=== PATIENT | male | born 1960 | race Hispanic/Latino ===

== ENCOUNTER 2024-05-30 17:54 | Emergency (ER) | payer MEDICARE ==
[~2024-05-30] VITALS: Ht 177.8 cm; Wt 86.2 kg
--- NOTE | 2024-05-30 18:03 | ERN ---
ED Note History of Present Illness Stated Complaint: LEG SWELLING Chief Complaint: LOWER EXTREMITY EDEMA Time Seen by MD: 18:04 Dictation: 64-YEAR-OLD MALE COMING IN WITH THE EMS WITH COMPLAINTS OF ABDOMINAL DISTENTION WITH THE EDEMA TO HIS LOWER EXTREMITIES SHE HAS HAD FOR A LONG TIME. NO FEVER NO CHILLS NO CHEST PAIN. HAS A HISTORY OF CIRRHOSIS WITH A ASCITES JUST GOT OUT OF [facility]. Allergies: Coded Allergies: No Known Allergies (Unverified Allergy, Unknown, 05/30/24) Past Medical History Past Medical History: CHF, Diabetes-Type II, High Cholesterol, Hypertension, Liver Disease Surgical History: Other PSYCH History: no pertinent psych hx RN Note Reviewed/Agreed w/PFSH: Yes Review of System Dictation CONSTITUTIONAL: NEGATIVE EXCEPT FOR HPI HEAD/FACE: NEGATIVE EXCEPT FOR HPI EENT: NEGATIVE EXCEPT FOR HPI RESPIRATORY: NEGATIVE EXCEPT FOR HPI SHORTNESS A BREATH/BILATERAL LOWER EXTREMITY EDEMA GASTROINTESTINAL/ABDOMINAL: NEGATIVE EXCEPT FOR HPI ABDOMINAL DISTENTION GENITOURINARY: NEGATIVE EXCEPT FOR HPI MUSCULOSKELETAL: NEGATIVE EXCEPT FOR HPI INTEGUMENTARY: NEGATIVE EXCEPT FOR HPI NEUROLOGICAL/PSYCH: NEGATIVE EXCEPT FOR HPI HEMATOLOGIC/LYMPHATIC: NEGATIVE EXCEPT FOR HPI ALL SYSTEMS NEGATIVE, EXCEPT NOTED ABOVE. 13 POINT REVIEW OF SYSTEMS ASSESSED AND ALL NEGATIVE EXCEPT FOR ABOVE. Physical Exam Dictation VITAL SIGNS REVIEWED GENERAL APPEARANCE: ALERT, ORIENTED X 3, NO ACUTE DISTRESS, WELL DEVELOPED, NOURISHED. HEAD AND FACE: NON-TRAUMATIC. EYES: PERRL, PINK CONJUNCTIVAS, EYELID NO TRAUMA, ANTERIOR CHAMBER WITH ARCUS SENILIS. EARS: PINNAS INTACT AND NO SIGNS OF TRAUMA OR ERYTHEMA EAR CANALS CLEAR AND NO DISCHARGE TM NO ERYTHEMA NOSE: NO DISCHARGE, NO BLEEDING. OROPHARYNX: MOUTH NORMAL, TONGUE PINK, PHARYNX CLEAR,NO ERYTHEMA, TONSILS NO EXUDATES, NO ABSCESSES NOTED, MUCOUS MEMBRANE MOIST NECK: SUPPLE, NON-TENDER, NO THYROMEGALY, NO MASSES, NO JVD, NO BRUITS BREAST:DEFERRED CHEST:NO TENDERNESS, NO CREPITUS, NO PARADOXICAL MOVEMENT, NO RETRACTIONS LUNGS:CLEAR, WELL-VENTILATED, SYMMETRIC, NO RALES, NO WHEEZING, NO RHONCHI, NO STRIDOR, GOOD BREATH SOUNDS BILATERALLY HEART: REGULAR RATE, REGULAR RHYTHM, NO MURMUR, NO GALLOPS VASCULAR: 3+ PERIPHERAL EDEMA BILATERAL LOWER EXTREMITIES TO KNEES, ABDOMEN: SOFT, POSITIVE BOWEL SOUNDS, NONDISTENDED, NO GUARDING, NONTENDER, NO REBOUND, NO MASSES NO HEPATOMEGALY, NO SPLENOMEGALY, NO BENZ'S SIGN, NO HERNIAS. ABDOMINAL DISTENTION WITH A ASCITES RECTAL: DEFERRED GENITAL: DEFERRED NEUROLOGICAL: NORMAL SPEECH, MOTOR FUNCTION INTACT, SENSORY FUNCTION INTACT MUSCULOSKELETAL: NECK NONTENDER, FULL RANGE OF MOTION, BACK NONTENDER, FULL RANGE OF MOTION, EXTREMITIES: NONTENDER, FULL RANGE OF MOTION SKIN: COLOR PINK, DRY, NO TURGOR, NO RASH, NO LACERATIONS, NO ABRASIONS, NO CONTUSIONS. LYMPHATIC: DEFERRED Results (Laboratory/Radiology) Labs Reviewed?: Yes ED Course ED Course Orders Procedure Category Date Status Time Pt And Ptt LAB 05/30/24 Logged 17:59 Ammonia LAB 05/30/24 Logged 17:59 Cbc With Differential LAB 05/30/24 Logged 17:59 Comprehensive LAB 05/30/24 Logged Metabolic Panel 17:59 Urinalysis Profile LAB 05/30/24 Logged 17:59 Chest 1vw RAD 05/30/24 Logged 17:59 B-Type Natriuretic LAB 05/30/24 Logged Peptide 18:04 12 Lead Ekg Tracing- EKG 05/30/24 Logged Technical 18:04 Medical Decision Making MDM MEDICAL DECISION-MAKING BASED ON PATIENT GETTING OFF OF STRETCHER FROM EMS AND STATES HE DOES NOT WANT TO BE AT THIS HOSPITAL HE SAID HIS HOSPITALIST IN [facility] AND HE IS ALREADY CALL AN UBER TO TAKE HIM TO [facility]. DX & DISP Disposition: AMA Departure Impression: Primary Impression: Shortness of breath Additional Impressions: Ascites, Cirrhosis Condition: Stable Time of Disposition: 18:07 I have reviewed the case, and I agree with, Diagnosis and Plan PAOLA PIRES NP May 30, 2024 18:03
--- NOTE | 2024-05-30 18:19 | NUR ---
1809 PT ARRVIED TO ROOM VIA EMS, PT STATES HE DOES NOT WANT TO SEE THE ATTENDING DOCTOR, HE WAS TOLD TO COME HERE, EMS WOULD NOT TAKE HIM TO [facility] IN [place]. PT STATES [facility] IS HIS [facility] WANT TO GO THERE. PT ASKED FOR PHONE TO CALL HIS , STATES WILL CALL HIM AN UBER. PT HAS NO IV ON ARRIVAL. NOTIFIED PAOLA THOMPSON, STATED PT WILL THEN NEED TO AMA. PT AGREED. PT SIGNED AMA FORM, 1819 PT TAKEN OUT TO ER [facility] IN [place] IS WAITING FOR HIS UBER RIDE.
== END 2024-05-30 18:14 | disposition left against medical advice (07) ==
LOC: EDH 17:54
DX: R18.8 Other ascites (principal); R06.02 Shortness of breath; K74.60 Unspecified cirrhosis of liver; I11.0 Hypertensive heart disease with heart failure; I50.9 Heart failure, unspecified; E11.9 Type 2 diabetes mellitus without complications; E78.00 Pure hypercholesterolemia, unspecified
CPT/HCPCS: 99281